=== PATIENT | female | born 1965 | race Caucasian/White ===

== ENCOUNTER 2019-03-19 17:24 | Inpatient (IN) | payer OTHER ==
--- NOTE | 2019-03-19 17:45 | PDOC ---
History of Present Illness - General Chief Complaint: Syncope/Near Syncope Stated Complaint: syncope, headache Time Seen by Provider: 03/19/19 17:44 History Source: Patient Exam Limitations: No Limitations - History of Present Illness Initial Comments: 03/19/19 17:45 53yF w PMHx HTN and migraines presenting w witnessed syncope and migraine. Had progressively worsening headache last 3 days with blurry vision, pain 8/10. Took indomethacin without relief. Similar to previous migraines. Also had a syncopal episode 2d ago which pt does not remember. Pt's noted 9pm she walked out out of shower, sudden leg weakness, collapsed on ground w LOC and head trauma to L temporal region, no seizure extremity mvmt or tongue biting, slapped and shouted pt until pt became alert/oriented 5min later. No post-ictal period. Denies previous syncopal episodes. Denies fever, cough, chest pain, SOB, nausea/vomiting, urinary/bowel mvmt changes. Past History - Past Medical History Allergies/Adverse Reactions: Allergies Allergy/AdvReac Type Severity Reaction Status Date / Time No Known Allergies Allergy Verified 03/19/19 17:29 Home Medications: Ambulatory Orders Cephalexin Monohydrate [Keflex -] 500 mg PO TID 05/15/13 Tramadol HCl [Ultram] 50 mg PO TID 05/15/13 Acetaminophen [Tylenol .Regular Strength -] 650 mg PO Q6H #100 tablet 05/17/13 Losartan Potassium [Cozaar -] 25 mg PO BID #60 tablet 05/17/13 hydrALAZINE HCL [Apresoline -] 10 mg PO TID #90 tablet 05/17/13 COPD: No HTN: Yes - Surgical History Abdominal Surgery: Yes - Psycho Social/Smoking Cessation Hx Smoking History: Never smoked Have you smoked in the past 12 months: No Information on smoking cessation initiated: No Hx Alcohol Use: No Drug/Substance Use Hx: No Substance Use Type: Alcohol Hx Substance Use Treatment: No Review of Systems - Review of Systems Constitutional: No: Chills, Fever HEENTM: Yes: Blurred Vision. No: Eye Pain, Nose Pain, Throat Pain, Mouth Pain Respiratory: No: Cough, Shortness of Breath Cardiac (ROS): Yes: Syncope. No: Chest Pain, Palpitations ABD/GI: No: Abdominal Distended, Constipated, Diarrhea, Nausea, Vomiting : No: Burning, Dysuria, Hematuria Musculoskeletal: No: Back Pain, Joint Pain Integumentary: No: Bruising, Flushing, Lesions Neurological: Yes: Headache. No: Seizure, Tingling, Tremors Psychiatric: No: Anxiety, Depression, Stressors Endocrine: No: Excessive Sweating, Flushing, Intolerance to Cold, Intolerance to Heat Hematologic/Lymphatic: No: Anemia, Blood Clots *Physical Exam - Vital Signs Last Vital Signs Temp Pulse Resp BP Pulse Ox 97.9 F 66 19 135/82 98 03/19/19 17:27 03/19/19 17:27 03/19/19 17:27 03/19/19 17:27 03/19/19 17:27 - Physical Exam General Appearance: Yes: Nourished, Appropriately Dressed, Mild Distress HEENT: positive: EOMI, MESERET, Normal Voice, Hearing Grossly Normal. negative: Scleral Icterus (R), Scleral Icterus (L), Nasal Congestion, Rhinorrhea Neck: positive: Supple. negative: Tender, Rigid Respiratory/Chest: positive: Lungs Clear, Normal Breath Sounds. negative: Chest Tender, Respiratory Distress, Crackles, Rales, Rhonchi, Stridor, Wheezing Cardiovascular: positive: Regular Rhythm, Regular Rate, S1, S2. negative: Edema , Murmur Extremity: positive: Normal Capillary Refill Integumentary: positive: Normal Color Neurologic: positive: private watchman II-XII NML intact, Fully Oriented, Alert, Normal Mood/ Affect, Normal Response, Motor Strength 5/5, Respond to painful stimul, Responsive. negative: Facial Droop, Numbness, Sensory Deficit, Confused, Disoriented ED Treatment Course - RADIOLOGY Radiology Studies Ordered: Category Date Time Status HEAD CT WITHOUT CONTRAST [CT] Stat CT Scan 03/19/19 19:02 Ordered Medical Decision Making - Medical Decision Making 03/19/19 19:02 53yF w PMHx HTN and migraines presenting w witnessed syncope 2d ago and 3d migraine headache. Rule out ACS (troponin, EKG). Low concern for CVA (neuro intact, no focal deficits) vs brain bleed (not hypertensive, unchanged headache) Given 1L NS, reglan, tylenol Anticipate admit for 1st time syncope Signed out to night team. - pending labs, head CT, EKG Discharge - Discharge Information Problems reviewed: Yes Clinical Impression/Diagnosis: Syncope and collapse Migraine Qualifiers: Migraine type: unspecified Status migrainosus presence: without status migrainosus Intractability: not intractable Qualified Code(s): G43.909 - Migraine, unspecified, not intractable, without status migrainosus Condition: Stable - Follow up/Referral Referrals: Abdiaziz Quintana MD [Primary Care Provider] - - Patient Discharge Instructions - Post Discharge Activity
[2019-03-19] MEDS ORDERED: ACETAMINOPHEN 1000 MG/100 ML VIAL (NON FORMULARY) IVPB ONE (18:55)
[2019-03-19] MEDS ORDERED: SODIUM CHLORIDE 0.9% 500 ML INFUS.BAG IV ONE (18:55)
[2019-03-19] MEDS ORDERED: METOCLOPRAMIDE HCL INJECTION 10 MG/2 ML VIAL IVPB ONE (18:55)
[2019-03-19] MEDS ORDERED: METOCLOPRAMIDE HCL INJECTION 10 MG/2 ML VIAL ONE (18:59)
[2019-03-19] MEDS ORDERED: ACETAMINOPHEN INJECTION 100 ML IVPB ONE (18:59)
--- NOTE | 2019-03-19 19:14 | PDOC ---
*Physical Exam - Vital Signs Last Vital Signs Temp Pulse Resp BP Pulse Ox 97.9 F 66 19 135/82 98 03/19/19 17:27 03/19/19 17:27 03/19/19 17:27 03/19/19 17:27 03/19/19 17:27 ED Treatment Course - LABORATORY CBC & Chemistry Diagram: 03/20/19 06:17 03/20/19 06:17 - Medications Given in the ED: ED Medications Discontinued Medications Generic Name Dose Route Start Last Admin Trade Name Bailey PRN Reason Stop Dose Admin Metoclopramide HCl 10 mg 03/19/19 18:55 03/19/19 19:00 Reglan Injection - IVPB 03/19/19 18:56 10 mg ONCE ONE Administration Sodium Chloride 1,000 ml 03/19/19 18:55 03/19/19 18:55 Normal Saline - IV 03/19/19 18:56 1,000 ml ONCE ONE Administration Medical Decision Making - Medical Decision Making Patient signed out by Dr. Coles 53yo F with PMH of HTN and migraine headaches presenting with headache. Labs, EKG, CT Head 03/19/19 19:13 CT negative for acute pathology, as read by Imaging compensation and benefits manager: "EXAM: CT HEAD WITHOUT CONTRAST REASON FOR EXAM: Syncope trauma COMPARISON: None FINDINGS: No intracranial hemorrhage midline shift, mass or skull fracture. [place] white matter demarcation intact. Ventricles, sulci and basal cisterns are within normal for age. Visualized paranasal sinuses and mastoid air cells are clear. Orbital structures are intact. IMPRESSION: No acute intracranial findings.' EKG: rate 61, QTc 418, NSR Headache improved after receiving reglan; patient states current headache is a normal migraine for her. Takes indomethacin TID for her headaches at home. Plan for telemetry observation for syncopal episode Microblog sent; awaiting callback 03/19/19 22:[address] Clark who accepted patient for telemetry observation under Dr. Barkley 03/19/19 22:58 Discharge - Discharge Information Problems reviewed: Yes Clinical Impression/Diagnosis: Syncope and collapse Migraine Qualifiers: Migraine type: unspecified Status migrainosus presence: without status migrainosus Intractability: not intractable Qualified Code(s): G43.909 - Migraine, unspecified, not intractable, without status migrainosus Condition: Guarded - Admission Yes - Follow up/Referral - Patient Discharge Instructions - Post Discharge Activity
--- NOTE | 2019-03-19 19:17 | PDOC ---
Attending Attestation - Resident Resident Name: Samira Gerard - ED Attending Attestation I have performed the following: I have examined & evaluated the patient, The case was reviewed & discussed with the resident, I agree w/resident's findings & plan - HPI HPI: 03/19/19 21:41 see resident hpi - Physicial Exam PE: 03/19/19 21:41 agree with resident exam - Medical Decision Making 03/19/19 21:41 53-year-old female with chronic headaches now with syncopal episode Per and patient the headaches have been present for 4 months She denies chest pain She does have a history of hypertension admits to taking indomethacin 3 times a day since headache started We will admit to medical service for further evaluation
[2019-03-19 20:00] LABS: BASO % 0.6 % (0-2.0); EOS % 3.2 % (0-4.5); LYMPH % 38.4 % (8-40); MCHC 33.3 g/dl (32.0-36.0); MEAN CELL VOLUME 90.3 fl (80-96); MEAN PLT VOLUME 8.7 fl (7.5-11.1); MONO % 7.5 % (3.8-10.2); NEUT % 50.3 % (42.8-82.8); PLATELET COUNT 247 K/MM3 (134-434); RBC 3.98 M/mm3 (3.60-5.2); RDW 13.1 % (11.6-15.6); WHITE BLOOD COUNT 9.4 K/mm3 (4.0-10.0)
[2019-03-19 20:30] LABS: ALBUMIN 3.8 g/dl (3.4-5.0); BILIRUBIN,TOTAL 0.1 mg/dL (0.2-1); CALCIUM 8.6 mg/dL (8.5-10.1); CREATININE 0.7 mg/dL (0.55-1.3); POTASSIUM 3.9 mmol/L (3.5-5.1); TOT PROT 7.5 g/dl (6.4-8.2)
--- NOTE | 2019-03-19 23:26 | HP ---
<Luciano Barkley - Last Filed: 03/20/19 00:48> CHIEF COMPLAINT: PCP: HISTORY OF PRESENT ILLNESS: ER course was notable for: (1) (2) (3) Recent Travel: PAST MEDICAL HISTORY: PAST SURGICAL HISTORY: Social History: Smoking: Alcohol: Drugs: Allergies No Known Allergies Allergy (Verified 03/19/19 17:29) HOME MEDICATIONS: Home Medications Medication Instructions Recorded Cephalexin Monohydrate [Keflex -] 500 mg PO TID 05/15/13 Tramadol HCl [Ultram] 50 mg PO TID 05/15/13 Acetaminophen [Tylenol .Regular 650 mg PO Q6H #100 tablet 05/17/13 Strength -] Losartan Potassium [Cozaar -] 25 mg PO BID #60 tablet 05/17/13 hydrALAZINE HCL [Apresoline -] 10 mg PO TID #90 tablet 05/17/13 REVIEW OF SYSTEMS CONSTITUTIONAL: Absent: fever, chills, diaphoresis, generalized weakness, malaise, loss of appetite, weight change HEENT: Absent: rhinorrhea, nasal congestion, throat pain, throat swelling, difficulty swallowing, mouth swelling, ear pain, eye pain, visual changes CARDIOVASCULAR: Absent: chest pain, syncope, palpitations, irregular heart rate, lightheadedness , peripheral edema RESPIRATORY: Absent: cough, shortness of breath, dyspnea with exertion, orthopnea, wheezing, stridor, hemoptysis GASTROINTESTINAL: Absent: abdominal pain, abdominal distension, nausea, vomiting, diarrhea, constipation, melena, hematochezia GENITOURINARY: Absent: dysuria, frequency, urgency, hesitancy, hematuria, flank pain, genital pain MUSCULOSKELETAL: Absent: myalgia, arthralgia, joint swelling, back pain, neck pain SKIN: Absent: rash, itching, pallor HEMATOLOGIC/IMMUNOLOGIC: Absent: easy bleeding, easy bruising, lymphadenopathy, frequent infections ENDOCRINE: Absent: unexplained weight gain, unexplained weight loss, heat intolerance, cold intolerance NEUROLOGIC: Absent: headache, focal weakness or paresthesias, dizziness, unsteady gait, seizure, mental status changes, bladder or bowel incontinence PSYCHIATRIC: Absent: anxiety, depression, suicidal or homicidal ideation, hallucinations. PHYSICAL EXAMINATION Vital Signs - 24 hr 03/19/19 03/19/19 17:27 20:51 Temperature 97.9 F 98 F Pulse Rate 66 Pulse Rate [ 62 Apical] Respiratory 19 18 Rate Blood Pressure 135/82 Blood Pressure 116/74 [Right Arm] O2 Sat by Pulse 98 99 Oximetry (%) GENERAL: Awake, alert, and fully oriented, in no acute distress. HEAD: Normal with no signs of trauma. EYES: Pupils equal, round and reactive to light, extraocular movements intact, sclera anicteric, conjunctiva clear. No lid lag. EARS, NOSE, THROAT: Ears normal, nares patent, oropharynx clear without exudates. Moist mucous membranes. NECK: Normal range of motion, supple without lymphadenopathy, JVD, or masses. LUNGS: Breath sounds equal, clear to auscultation bilaterally. No wheezes, and no crackles. No accessory muscle use. HEART: Regular rate and rhythm, normal S1 and S2 without murmur, rub or gallop. ABDOMEN: Soft, nontender, not distended, normoactive bowel sounds, no guarding, no rebound, no masses. No hepatomegaly or splenomegaly. MUSCULOSKELETAL: Normal range of motion at all joints. No bony deformities or tenderness. No CVA tenderness. UPPER EXTREMITIES: 2+ pulses, warm, well-perfused. No cyanosis. No clubbing. No peripheral edema. LOWER EXTREMITIES: 2+ pulses, warm, well-perfused. No calf tenderness. No peripheral edema. NEUROLOGICAL: Cranial nerves II-XII intact. Normal speech. Normal gait. PSYCHIATRIC: Cooperative. Good eye contact. Appropriate mood and affect. SKIN: Warm, dry, normal turgor, no rashes or lesions noted, normal capillary refill. Laboratory Results - last 24 hr 03/19/19 03/19/19 03/19/19 18:50 18:50 18:50 WBC 9.4 RBC 3.98 Hgb 12.0 Hct 36.0 MCV 90.3 MCH 30.0 MCHC 33.3 RDW 13.1 Plt Count 247 D MPV 8.7 Absolute Neuts (auto) 4.8 Neutrophils % 50.3 D Lymphocytes % 38.4 D Monocytes % 7.5 Eosinophils % 3.2 D Basophils % 0.6 Nucleated RBC % 0 Sodium 140 Potassium 3.9 Chloride 110 H Carbon Dioxide 24 Anion Gap 6 L BUN 24.0 H Creatinine 0.7 Est GFR (CKD-EPI)AfAm 113.84 Est GFR (CKD-EPI)NonAf 98.23 Random Glucose 95 Calcium 8.6 Total Bilirubin 0.1 L AST 20 ALT 32 Alkaline Phosphatase 116 Creatine Kinase 641 H Creatine Kinase Index 0.7 CK-MB (CK-2) 4.9 H Troponin I < 0.02 Total Protein 7.5 Albumin 3.8 ASSESSMENT/PLAN: ATTENDING PHYSICIAN STATEMENT I saw and evaluated the patient. I reviewed the resident's note and discussed the case with the resident. I agree with the resident's findings and plan as documented. SUBJECTIVE: OBJECTIVE: ASSESSMENT AND PLAN: <Komal Clark - Last Filed: 03/20/19 01:39> CHIEF COMPLAINT: Syncope PCP: Dr. Quintana HISTORY OF PRESENT ILLNESS: Patient is a 53 year old female PMH of HTN and migraines who presents s/p syncopal episode one day ago. Pt has a hx of migraines at baseline. She has been experiencing worsening frontal headaches over the past 3 days. One day ago , pt got out of the shower, walked to her room and dressed herself and then suddenly collapsed. Event was witnessed by . She hit her head on the ground and had LOC for about 2 min after shouted and shook her to wake up. Denies any seizure like activity, she did not urinate herself, bite tongue, foam from mouth. After pt regained consciousness, he helped her to the bed and she felt fine except for a mild headache where she hit her head. No focal neurological deficits or weakness. Pt denies any prodromal symptoms prior to this event. No chest pain, palpitations, lightheadedeness, dizzines, SOB, vision changes. She denies any similar episodes in the past. Pt has tried taking indomethacin for headache w/o any relief. In the ED, she denies any symptoms and states her headache is at baseline. ER course was notable for: (1) CT head: neg for acute intracranial pathology (2) (3) Recent Travel: denies PAST MEDICAL HISTORY: HTN Migraines PAST SURGICAL HISTORY: Denies Social History: Smoking: denies Alcohol: denies Drugs: denies Allergies No Known Allergies Allergy (Verified 03/19/19 17:29) HOME MEDICATIONS: Home Medications Medication Instructions Recorded Cephalexin Monohydrate [Keflex -] 500 mg PO TID 05/15/13 Tramadol HCl [Ultram] 50 mg PO TID 05/15/13 Acetaminophen [Tylenol .Regular 650 mg PO Q6H #100 tablet 05/17/13 Strength -] Losartan Potassium [Cozaar -] 25 mg PO BID #60 tablet 05/17/13 hydrALAZINE HCL [Apresoline -] 10 mg PO TID #90 tablet 05/17/13 REVIEW OF SYSTEMS CONSTITUTIONAL: Absent: fever, chills, diaphoresis, generalized weakness, malaise, loss of appetite, weight change HEENT: Absent: rhinorrhea, nasal congestion, throat pain, throat swelling, difficulty swallowing, mouth swelling, ear pain, eye pain, visual changes CARDIOVASCULAR: syncope Absent: chest pain, palpitations, irregular heart rate, lightheadedness, peripheral edema RESPIRATORY: Absent: cough, shortness of breath, dyspnea with exertion, orthopnea, wheezing, stridor, hemoptysis GASTROINTESTINAL: Absent: abdominal pain, abdominal distension, nausea, vomiting, diarrhea, constipation, melena, hematochezia GENITOURINARY: Absent: dysuria, frequency, urgency, hesitancy, hematuria, flank pain, genital pain MUSCULOSKELETAL: Absent: myalgia, arthralgia, joint swelling, back pain, neck pain SKIN: Absent: rash, itching, pallor HEMATOLOGIC/IMMUNOLOGIC: Absent: easy bleeding, easy bruising, lymphadenopathy, frequent infections ENDOCRINE: Absent: unexplained weight gain, unexplained weight loss, heat intolerance, cold intolerance NEUROLOGIC: headache Absent: focal weakness or paresthesias, dizziness, unsteady gait, seizure, mental status changes, bladder or bowel incontinence PSYCHIATRIC: Absent: anxiety, depression, suicidal or homicidal ideation, hallucinations. PHYSICAL EXAMINATION Vital Signs - 24 hr 03/19/19 03/19/19 17:27 20:51 Temperature 97.9 F 98 F Pulse Rate 66 Pulse Rate [ 62 Apical] Respiratory 19 18 Rate Blood Pressure 135/82 Blood Pressure 116/74 [Right Arm] O2 Sat by Pulse 98 99 Oximetry (%) GENERAL: Awake, alert, and fully oriented, in no acute distress. HEAD: Normal with no signs of trauma. EYES: Pupils equal, round and reactive to light, extraocular movements intact, sclera anicteric, conjunctiva clear. No lid lag. EARS, NOSE, THROAT: Ears normal, nares patent, oropharynx clear without exudates. Moist mucous membranes. NECK: Normal range of motion, supple without lymphadenopathy, JVD, or masses. LUNGS: Breath sounds equal, clear to auscultation bilaterally. No wheezes, and no crackles. No accessory muscle use. HEART: Regular rate and rhythm, normal S1 and S2 without murmur, rub or gallop. ABDOMEN: Soft, nontender, not distended, normoactive bowel sounds, no guarding, no rebound, no masses. No hepatomegaly or splenomegaly. MUSCULOSKELETAL: Normal range of motion at all joints. No bony deformities or tenderness. No CVA tenderness. UPPER EXTREMITIES: 2+ pulses, warm, well-perfused. No cyanosis. No clubbing. No peripheral edema. LOWER EXTREMITIES: 2+ pulses, warm, well-perfused. No calf tenderness. No peripheral edema. NEUROLOGICAL: Cranial nerves II-XII intact. Normal speech. Normal gait. PSYCHIATRIC: Cooperative. Good eye contact. Appropriate mood and affect. SKIN: Warm, dry, normal turgor, no rashes or lesions noted, normal capillary refill. Laboratory Results - last 24 hr CBC, BMP 03/19/19 18:50 03/19/19 18:50 ASSESSMENT/PLAN: Patient is a 53 year old female PMH of HTN and migraines who presents s/p syncopal episode one day ago. #Syncope 2/2 vasovagal vs orthostatic vs cardiac Orthostatics: 134/74 --> 116/78 No hx of cardiac or neuro disease CT head: no acute intracranial pathology EKG: NSR, no st elevations or TWI Trop negative, cont to trend cardiac enzymes and serial EKGs F/u echo, carotid doppler, tele monitoring CK: 641, hydrate with IV NS @ 125 ml/hr #HTN Pt states she takes Hctz 5mg at home (need to be med-rec'ed) Hold anti-hypertensive medications in setting or orthostasis #Migraines Pt takes indomethacin TID (needs to be med rec'ed Has never seen neurologist in past for these migraines Will treat with tylenol prn for pain Consider neuro consult #FEN IV NS @ 125 ml/hr Sodium-controlled diet #DVT ppx Heparin sq #Dispo Monitor on tele Visit type - Emergency Visit Emergency Visit: Yes ED Registration Date: 03/19/19 Care time: The patient presented to the Emergency Department on the above date and was hospitalized for further evaluation of their emergent condition. - New Patient This patient is new to me today: Yes Date on this admission: 03/20/19 - Critical Care Critical Care patient: No ATTENDING PHYSICIAN STATEMENT I saw and evaluated the patient. I reviewed the resident's note and discussed the case with the resident. I agree with the resident's findings and plan as documented. SUBJECTIVE: OBJECTIVE: ASSESSMENT AND PLAN:
[2019-03-20] MEDS ORDERED: ACETAMINOPHEN 325 MG TABLET (FP) PO PRN (01:31)
[2019-03-20] MEDS ORDERED: SODIUM CHLORIDE 1,000 ML IV SCH (01:45)
[2019-03-20 02:45] LABS: PHOSPHOROUS 3.8 mg/dL (2.5-4.9)
[2019-03-20 03:02] VITALS: TEMP 98; BMI 26.2
[2019-03-20 06:34] LABS: BASO % 0.6 % (0-2.0); WHITE BLOOD COUNT 7.8 K/mm3 (4.0-10.0)
[2019-03-20 06:39] LABS: EOS % 4.3 % (0-4.5); HEMATOCRIT 33.4 % (32.4-45.2); HEMOGLOBIN 11.2 GM/dL (10.7-15.3); LYMPH % 45.8 % (8-40); MCH 30.3 pg (25.7-33.7); MCHC 33.6 g/dl (32.0-36.0); MEAN CELL VOLUME 90.2 fl (80-96); MEAN PLT VOLUME 8.2 fl (7.5-11.1); MONO % 7.2 % (3.8-10.2); NEUT % 42.1 % (42.8-82.8); PLATELET COUNT 230 K/MM3 (134-434); RDW 13.3 % (11.6-15.6)
[2019-03-20 06:55] LABS: MAGNESIUM 2.1 mg/dL (1.8-2.4)
[2019-03-20 07:39] LABS: BILIRUBIN,TOTAL 0.3 mg/dL (0.2-1); BLOOD UREA NITROGEN 18.3 mg/dL (7-18); CALCIUM 8.3 mg/dL (8.5-10.1); CREATININE 0.6 mg/dL (0.55-1.3); POTASSIUM 3.9 mmol/L (3.5-5.1); TOT PROT 6.1 g/dl (6.4-8.2)
--- NOTE | 2019-03-20 10:29 | EKG ---
Test Reason : Blood Pressure : / mmHG Vent. Rate : 058 BPM Atrial Rate : 058 BPM P-R Int : 146 ms QRS Dur : 100 ms QT Int : 408 ms P-R-T Axes : 021 062 016 degrees QTc Int : 400 ms SINUS BRADYCARDIA OTHERWISE NORMAL ECG WHEN COMPARED WITH ECG OF 19-MAR-2019 21:05, NO SIGNIFICANT CHANGE WAS FOUND Confirmed by BRANDT DAVIS MD ([id number]) on 03/20/2019 10:28:38 AM Referred By: Confirmed By:BRANDT DAVIS MD
--- NOTE | 2019-03-20 10:29 | EKG ---
Test Reason : Blood Pressure : / mmHG Vent. Rate : 061 BPM Atrial Rate : 061 BPM P-R Int : 144 ms QRS Dur : 104 ms QT Int : 416 ms P-R-T Axes : 040 073 035 degrees QTc Int : 418 ms NORMAL SINUS RHYTHM NORMAL ECG WHEN COMPARED WITH ECG OF 15-MAY-2013 12:49, NO SIGNIFICANT CHANGE WAS FOUND Confirmed by BRANDT DAVIS MD ([id number]) on 03/20/2019 10:28:43 AM Referred By: Confirmed By:BRANDT DAVIS MD
--- NOTE | 2019-03-20 12:25 | PN ---
Teaching Attending Note Name of Resident: Willi Acuña ATTENDING PHYSICIAN STATEMENT I saw and evaluated the patient. I reviewed the resident's note and discussed the case with the resident. I agree with the resident's findings and plan as documented with exceptions below. SUBJECTIVE: Patient seen and examined. headache improved, no other complaints. OBJECTIVE: Vital Signs Period Temp Pulse Resp BP Sys/Armas Pulse Ox Last 24 Hr 97.9 F-98.0 F 56-97 18-20 107-135/69-83 97-99 Intake & Output 03/17/19 03/18/19 03/19/19 03/20/19 23:59 23:59 23:59 23:59 Intake Total 740 Balance 740 Weight 132 lb 134 lb 3.2 oz General: lying in bed, no acute distress Neck: soft, supple, no carotid bruit Abdomen:Soft, obese, NT Extremities: no edema Neuro: AAOX3, facial symmetry, tongue midline, speech normal, PERRL, EOMI, power 5/5, sensation intact, no gross deficit Home Medications Medication Instructions Recorded Etanercept [Enbrel] 25 mg SQ WEEKLY 03/20/19 Hydrochlorothiazide 12.5 mg PO DAILY 03/20/19 Indomethacin 50 mg PO TID 03/20/19 Active Medications Acetaminophen (Tylenol -) 650 mg PO Q6H PRN PRN Reason: PAIN LEVEL 6-10 Sodium Chloride (Normal Saline -) 1,000 mls @ 125 mls/hr IV ASDIR MARIE Last Admin: 03/20/19 03:00 Dose: 125 mls/hr Laboratory Results - last 24 hr 03/19/19 03/19/19 03/19/19 18:50 18:50 18:50 WBC 9.4 RBC 3.98 Hgb 12.0 Hct 36.0 MCV 90.3 MCH 30.0 MCHC 33.3 RDW 13.1 Plt Count 247 D MPV 8.7 Absolute Neuts (auto) 4.8 Neutrophils % 50.3 D Lymphocytes % 38.4 D Monocytes % 7.5 Eosinophils % 3.2 D Basophils % 0.6 Nucleated RBC % 0 Sodium 140 Potassium 3.9 Chloride 110 H Carbon Dioxide 24 Anion Gap 6 L BUN 24.0 H Creatinine 0.7 Est GFR (CKD-EPI)AfAm 113.84 Est GFR (CKD-EPI)NonAf 98.23 Random Glucose 95 Calcium 8.6 Phosphorus Magnesium Total Bilirubin 0.1 L AST 20 ALT 32 Alkaline Phosphatase 116 Creatine Kinase 641 H Creatine Kinase Index 0.7 CK-MB (CK-2) 4.9 H Troponin I < 0.02 Total Protein 7.5 Albumin 3.8 03/20/19 03/20/19 03/20/19 01:45 06:17 06:17 WBC 7.8 RBC 3.70 Hgb 11.2 Hct 33.4 MCV 90.2 MCH 30.3 MCHC 33.6 RDW 13.3 Plt Count 230 MPV 8.2 Absolute Neuts (auto) 3.3 Neutrophils % 42.1 L Lymphocytes % 45.8 H Monocytes % 7.2 Eosinophils % 4.3 Basophils % 0.6 Nucleated RBC % 0 Sodium Potassium Chloride Carbon Dioxide Anion Gap BUN Creatinine Est GFR (CKD-EPI)AfAm Est GFR (CKD-EPI)NonAf Random Glucose Calcium Phosphorus 3.8 4.0 Magnesium 2.0 2.1 Total Bilirubin AST ALT Alkaline Phosphatase Creatine Kinase 102 Creatine Kinase Index CK-MB (CK-2) Troponin I < 0.02 Total Protein Albumin 03/20/19 03/20/19 06:17 06:17 WBC RBC Hgb Hct MCV MCH MCHC RDW Plt Count MPV Absolute Neuts (auto) Neutrophils % Lymphocytes % Monocytes % Eosinophils % Basophils % Nucleated RBC % Sodium 144 Potassium 3.9 Chloride 115 H Carbon Dioxide 25 Anion Gap 4 L BUN 18.3 H Creatinine 0.6 Est GFR (CKD-EPI)AfAm 119.77 Est GFR (CKD-EPI)NonAf 103.34 Random Glucose 86 Calcium 8.3 L Phosphorus Magnesium Total Bilirubin 0.3 AST 17 ALT 27 Alkaline Phosphatase 84 Creatine Kinase 90 Creatine Kinase Index CK-MB (CK-2) Troponin I < 0.02 Total Protein 6.[address] brain results reviewed telemetry: NSR 70s-80s, no events ASSESSMENT AND PLAN: 53 yof with PMHx of migrainous headaches, ?arthritis on weekly Embrel (for 3 years) admitted with syncope -Syncope, suspect vasovagal in the setting of sudden positional change, compounded by vasodilation from recent shower+/-pain (headache) -Migrainous headaches -?Arthritis on weekly Embrel Plan: Patient reports got out of shower, bend her head down to dry her hair, lifted her head up suddenly, next thing she remembers was her trying to wake her up on the floor. at bedside, confirms the above events, states she had LOC for 1-2 min, when woke up was at her baseline. No post episode confusion, urinary or bowel incontinency, altered speech or noted. Patient denies any chest pain, dizziness , prior to episode. Has intermittent headaches, occasionally frontal, occasional right sided,throbbing, placed on indomethacin by PCP with improvement. Denies currently. Also reports positional dizziness with sudden change in posture Current episode likely vasovagal in the setting of sudden positional change, compounded by vasodilation from recent shower +/- pain from her migrainous headaches. No events on telemetry, for 2D echo will follow up. Dc today if w/u non concerning and no new events. Patient advised to maintain adequate hydration, avoid sudden changes in position and discuss outpatient neurology referral with her PCP for her migrainous headaches. Plan also addressed with .
--- NOTE | 2019-03-20 13:08 | ECHO ---
Name: VANESSA GE Exam:Adult Echocardiogram Study Date: 03/20/2019 11:22 AM Age: 53 yrs Reason For Study: syncope Height: 60 in Weight: 132 lb BSA: 1.6 m2 MMode/2D Measurements & Calculations IVSd: 0.84 cm Ao root diam: 2.9 cm LVIDd: 4.6 cm LA dimension: 3.3 cm LVIDs: 2.8 cm ACS: 1.7 cm LVPWd: 0.92 cm IVSs: 1.1 cm LVPWs: 0.88 cm EDV(Teich): 96.5 ml ESV(Teich): 29.2 ml Doppler Measurements & Calculations MV E max kai: 89.3 cm/sec Ao V2 max: 122.6 cm/sec MV A max kai: 72.3 cm/sec Ao max P.0 mmHg MV E/A: 1.2 Ao V2 mean: 82.3 cm/sec Ao mean P.2 mmHg Ao V2 VTI: 29.0 cm MR max kai: 297.4 cm/sec TR max kai: 221.1 cm/sec MR max P.4 mmHg TR max P.6 mmHg Med Peak E' Kai: 8.2 cm/sec Med E/e': 10.9 Lat Peak E' Kai: 8.5 cm/sec Lat E/e': 10.5 Procedure A complete two-dimensional transthoracic echocardiogram was performed (2D, M-mode, Doppler and color flow Doppler). Left Ventricle The left ventricular size, thickness and function are normal. The left ventricular ejection fraction is normal. Ejection Fraction = 60-65%. The left ventricular wall motion is normal. Right Ventricle The right ventricle is normal in size and function. Atria Normal left and right atrial size and function. Mitral Valve There is no mitral regurgitation noted. Tricuspid Valve There is mild tricuspid regurgitation. Right ventricular systolic pressure is normal. Aortic Valve No hemodynamically significant valvular aortic stenosis. No aortic regurgitation is present. Pulmonic Valve There is no pulmonic valvular regurgitation. Great Vessels The aortic root is normal size. Pericardium/Pleura There is no pericardial effusion. Interpretation Summary The left ventricular size, thickness and function are normal The right ventricle is normal in size and function. There is mild tricuspid regurgitation. MD Phil Guajardo 03/20/2019 01:07 PM
--- NOTE | 2019-03-20 13:30 | DS ---
Physical Exam: SUBJECTIVE: Patient seen and examined at the bedside. Noted that her headaches had improved. Denied any lightheadedness, dizziness, thirst, hunger, visual changes, focal weakness, numbness, tingling, cp, sob, abd pain, n/v/c/d, fevers , chills. OBJECTIVE: Vital Signs Period Temp Pulse Resp BP Sys/Armas Pulse Ox Last 24 Hr 97.9 F-98.0 F 56-97 18-20 107-135/69-83 97-99 PHYSICAL EXAM GENERAL: The patient is awake, alert, and fully oriented, in no acute distress. HEAD: Normal with no signs of trauma. EYES: PERRL, extraocular movements intact, sclera anicteric, conjunctiva clear. ENT: Oropharynx clear without exudates, moist mucous membranes. LUNGS: Breath sounds equal, clear to auscultation bilaterally, no wheezes, no crackles, no accessory muscle use. HEART: Regular rate and rhythm, S1, S2 without murmur, rub. ABDOMEN: Soft, nontender, nondistended, normoactive bowel sounds, no guarding, no rebound, no masses. EXTREMITIES: 2+ pulses, warm, well-perfused, no edema. NEUROLOGICAL: Cranial nerves II through XII grossly intact. 5/5 muscle strength bilaterally, upper and lower extremities. No sensory deficits to gross touch. PSYCH: Normal mood, normal affect. SKIN: Warm, dry, normal turgor. LABS Laboratory Results - last 24 hr 03/19/19 03/19/19 03/19/19 18:50 18:50 18:50 WBC 9.4 RBC 3.98 Hgb 12.0 Hct 36.0 MCV 90.3 MCH 30.0 MCHC 33.3 RDW 13.1 Plt Count 247 D MPV 8.7 Absolute Neuts (auto) 4.8 Neutrophils % 50.3 D Lymphocytes % 38.4 D Monocytes % 7.5 Eosinophils % 3.2 D Basophils % 0.6 Nucleated RBC % 0 Sodium 140 Potassium 3.9 Chloride 110 H Carbon Dioxide 24 Anion Gap 6 L BUN 24.0 H Creatinine 0.7 Est GFR (CKD-EPI)AfAm 113.84 Est GFR (CKD-EPI)NonAf 98.23 Random Glucose 95 Calcium 8.6 Phosphorus Magnesium Total Bilirubin 0.1 L AST 20 ALT 32 Alkaline Phosphatase 116 Creatine Kinase 641 H Creatine Kinase Index 0.7 CK-MB (CK-2) 4.9 H Troponin I < 0.02 Total Protein 7.5 Albumin 3.8 03/20/19 03/20/19 03/20/19 01:45 06:17 06:17 WBC 7.8 RBC 3.70 Hgb 11.2 Hct 33.4 MCV 90.2 MCH 30.3 MCHC 33.6 RDW 13.3 Plt Count 230 MPV 8.2 Absolute Neuts (auto) 3.3 Neutrophils % 42.1 L Lymphocytes % 45.8 H Monocytes % 7.2 Eosinophils % 4.3 Basophils % 0.6 Nucleated RBC % 0 Sodium Potassium Chloride Carbon Dioxide Anion Gap BUN Creatinine Est GFR (CKD-EPI)AfAm Est GFR (CKD-EPI)NonAf Random Glucose Calcium Phosphorus 3.8 4.0 Magnesium 2.0 2.1 Total Bilirubin AST ALT Alkaline Phosphatase Creatine Kinase 102 Creatine Kinase Index CK-MB (CK-2) Troponin I < 0.02 Total Protein Albumin 03/20/19 03/20/19 06:17 06:17 WBC RBC Hgb Hct MCV MCH MCHC RDW Plt Count MPV Absolute Neuts (auto) Neutrophils % Lymphocytes % Monocytes % Eosinophils % Basophils % Nucleated RBC % Sodium 144 Potassium 3.9 Chloride 115 H Carbon Dioxide 25 Anion Gap 4 L BUN 18.3 H Creatinine 0.6 Est GFR (CKD-EPI)AfAm 119.77 Est GFR (CKD-EPI)NonAf 103.34 Random Glucose 86 Calcium 8.3 L Phosphorus Magnesium Total Bilirubin 0.3 AST 17 ALT 27 Alkaline Phosphatase 84 Creatine Kinase 90 Creatine Kinase Index CK-MB (CK-2) Troponin I < 0.02 Total Protein 6.1 L Albumin 3.0 L HOSPITAL COURSE: Isidra Auguste is a 53 year old female with a past medical history of HTN, migraines, and arthritis who was admitted after syncopal episode. Patient did note that her symptoms were provoked when she rapidly moved her head from a leaning position to an upright position. Orthostatics performed were negative. CT of the head did not show any acute pathology. Telemetry did not show any acute events. Echo showed normal LV size, function, thickness, and RV size and function, EF 60-65%, and midl tricuspid regurgitation. Received IV hydration. Patient was advised to move her her slower and not to make rapid positional shifts to avoid further episodes. Was advised to not drive or control heavy machinery. Was advised to remain adequately hydrated. Patient stated that she continued to have migraine headaches that were difficult to control. She was advised to follow up with a neurologist for management of her symptoms. Patient and at bedside were advised to follow up with the PCP and neurologist. They were in agreement with plan and reiterated it. Patient was discharged in stable medical condition. Date of Admission:03/19/19 Date of Discharge: 03/20/19 Minutes to complete discharge: 35 Discharge Summary Problems reviewed: Yes Reason For Visit: SYNCOPE AND COLLAPSE Current Active Problems Migraine (Chronic) Condition: Stable - Instructions Diet, Activity, Other Instructions: You were admitted after having a fainting episode. You had a CT of your head which did not show any unusual findings. You were monitored on the cardiac ( heart) floor which did not show unusual findings on your heart monitor. You had an echocardiogram (ultrasound of the heart) which showed normal size and function of your heart. You noted that you were having migraines and were taking indomethacin for treatment. You are advised to follow up with a neurologist (brain doctor) to help better control your headache symptoms. MEDICATIONS Continue taking all of your home medications as prescribed. REFERRALS Please follow up with your primary care doctor, Dr. Abdiaziz Quintana, within 1 week. Please discuss with your doctor for outpatient neurology referral for your migraines or you can follow up with Dr. Leigh's office (information provided) SPECIAL INSTRUCTIONS Make sure to not stand up or sit down too quickly or move your head too quickly in any direction to avoid having further symptoms of dizziness, lightheadedness , or fainting. Ensure that you are drinking adequate amounts of water (6-8 glasses) to avoid dehydration and lightheaded symptoms. Avoid driving or operative heavy machinery till next doctor visit. If you have any symptoms of fainting, dizziness, lightheadedness, weakness on one side, palpitations, falls with head hits, chest pain, shortness of breath, or any other general feelings of unwellness, call 911 or go your nearest emergency room. Referrals: Dakota Leigh MD [Staff Physician] - Abdiaziz Quintana MD [Primary Care Provider] - Disposition: HOME - Home Medications Comprehensive Discharge Medication List: Ambulatory Orders Etanercept [Enbrel] 25 mg SQ WEEKLY 03/20/19 Hydrochlorothiazide 12.5 mg PO DAILY 03/20/19 Indomethacin 50 mg PO TID 03/20/19 Problem List - Problems (1) Migraine Code(s): G43.909 - MIGRAINE, UNSP, NOT INTRACTABLE, WITHOUT STATUS MIGRAINOSUS Qualifiers: Migraine type: unspecified Status migrainosus presence: without status migrainosus Intractability: not intractable Qualified Code(s): G43.909 - Migraine, unspecified, not intractable, without status migrainosus (2) Syncope and collapse Code(s): R55 - SYNCOPE AND COLLAPSE (3) Hypertension Code(s): I10 - ESSENTIAL (PRIMARY) HYPERTENSION This patient is new to me today: Yes Date on this admission: 03/20/19 Emergency Visit: Yes ED Registration Date: 03/19/19 Care time: The patient presented to the Emergency Department on the above date and was hospitalized for further evaluation of their emergent condition. Critical Care patient: No - Discharge Referral Referred to [facility] No
[2019-03-20 13:57] VITALS: BP 107/69; PULSE 56
== END 2019-03-20 13:59 | disposition home or self-care (01) | DRG 204 ==
LOC: JER 17:24 → JERBED 22:17 → J4W 03-20 02:21
PROVIDERS: ADMIT Internal Medicine; ATTEND Hospitalist
DX: R55 Syncope and collapse (principal); I10 Essential (primary) hypertension; G43.909 Migraine, unspecified, not intractable, without status migrainosus
CPT/HCPCS: 36415; 70450-TC; 80053; 82550; 82553; 83735; 84100; 84484; 85025; 93005; 93010; 93306-TC; 97116-GP; 97161-GP; 99285-25; J0131; J7030